=== PATIENT | male | born 1950 | race African-American/Black ===

== ENCOUNTER 2019-12-19 11:38 | Outpatient (CLI) | payer OTHER, SELFPAY ==
--- NOTE | ~2019-12-19 | CT_ITS ---
EXAMINATION: CT chest wo con EXAM DATE: 12/19/2019 12:15 INDICATION: History of non-small cell lung cancer right lower lobe status post SBRT. TECHNIQUE: Spiral CT of the chest without contrast. Axial, coronal and sagittal images were reviewe d. Coronal maximum intensity pixel images of chest reviewed. The dose-length product (DLP) for this examination was 214.44 mGy-cm. The exposure was tailored according to patient size (auto mA exposur e control), and iterative reconstruction (ASIR) was used as additional dose reduction technique. Comp arison is made to prior examination from 10/27/2018. FINDINGS: Again there is right infrahilar airspace disease, with a cut off posterior segmental bronc hus from soft tissue density, and spiculated opacity radiating out from this. Difficult to measure th is given its shape, but previously measured approximately 1.2 cm for the major nodular component with out linear radiating opacities. It appears unchanged in size, shape, appearance today, probably scarr ing of cancer following radiation treatment. There is mild emphysema. There is a left subclavian arterial shunt, proximal portion appears collapse d, distal portion is normal in caliber extending down the left anterolateral aspect of the thorax. T here are no pleural or pericardial effusions. Tracheobronchial tree is patent. There is no medias tinal, hilar or axillary lymphadenopathy. There is no pneumothorax. Heart normal in size. There is mild coronary arterial calcification, arterial sclerosis. Upper abdomen is unremarkable. Chron ic L1 burst fracture unchanged. There are no osteoblastic or osteolytic lesions identified. IMPRESSION: 1. Stable right lower lobe spiculation, radiating opacities. 2. Mild emphysema. Reviewed, dictated and finalized at location B.
== END 2019-12-19 11:39 | disposition home or self-care (01) ==
LOC: ANHIMG 11:42
PROVIDERS: PCP Family Medicine
DX: C34.31 Malignant neoplasm of lower lobe, right bronchus or lung (principal); J43.9 Emphysema, unspecified
CPT/HCPCS: 71250

== ENCOUNTER 2020-07-16 13:20 | Outpatient (CLI) | payer OTHER, SELFPAY ==
--- NOTE | ~2020-07-16 | CT_ITS ---
EXAMINATION: CT diagnostic chest wo con DATE: 07/16/2020 14:15 INDICATION: Non small cell lung ca; non metastatic. Right lung cancer. TECHNIQUE: Computed tomography (CT) of the chest was performed without intravenous contrast. Addition al 3D reconstructions utilizing coronal maximum intensity projection (MIP) were performed. Automated exposure control and iterative reconstruction technique were employed. The dose-length product was 17 8.08 mGy-cm. COMPARISON: 12/19/2019 and PET/CT dated 12/21/2018 FINDINGS: Unchanged curved linear bands of atelectasis/scarring with associated volume loss and architectural d istortion in the right lower lobe. The thin nature of the bands which is best appreciated on the sagi ttal images appears unchanged. No new pulmonary nodules, pneumonia, pulmonary edema or other pulmonar y infiltrates. No pleural effusion or pneumothorax. Heart size is normal. Atherosclerotic coronary ar shikha calcific a cyst. No pericardial effusion. Thoracic aorta is normal in caliber. No pathologically enlarged thoracic lymphadenopathy. Left axillary femoral bypass graft. The proximal portion is again noted to appear collapsed. Chronic L1 burst fracture. Chronic mild T8 compression fracture. IMPRESSION: 1. Unchanged bands of atelectasis/scarring in the right lower lobe consistent with treated lung cance r. No evident metastatic disease. Reviewed, dictated and finalized at location B. ING DEPARTMENT END FINDER IMPRESSION: 1. Unchanged bands of atelectasis/scarring in the right lower lobe consistent w ith treated lung cancer. No evident metastatic disease.
== END 2020-07-16 13:21 | disposition home or self-care (01) ==
PROVIDERS: PCP Family Medicine; Visit Provider Radiology Radiation Oncology
DX: C34.31 Malignant neoplasm of lower lobe, right bronchus or lung (principal); S22.061A Stable burst fracture of T7-T8 vertebra, initial encounter for closed fracture
CPT/HCPCS: 71250

== ENCOUNTER 2021-03-15 12:54 | Outpatient (CLI) | payer OTHER, SELFPAY ==
--- NOTE | ~2021-03-15 | CT_ITS ---
EXAMINATION: CT diagnostic chest wo con EXAM DATE: 03/15/2021 13:20 INDICATION: Right-sided lung cancer. TECHNIQUE: Spiral CT of the chest without contrast. Axial, coronal and sagittal images of the chest were reviewed. Coronal maximum intensity pixel images of chest reviewed. The dose-length product ( DLP) for this examination was 234.97 mGy-cm. The exposure was tailored according to patient size (au to mA exposure control), and iterative reconstruction (ASIR) was used as additional dose reduction te chnique. Comparison is made to prior examination from 07/16/2020. FINDINGS: Again there is linear opacity extending from the right infrahilar region to the pleura con sistent with treated lung cancer, scarring unchanged. There are no pleural or pericardial effusions. Again there is some debris in the trachea. There is no mediastinal, hilar or axillary lymphadenop athy. There is no pneumothorax. Heart normal in size. There is mild coronary arterial calcifica tion, arterial sclerosis. Lobular atrophic left kidney. There are old right rib fractures. There ar e no osteoblastic or osteolytic lesions identified. Chronic burst fracture of L1 with severe loss of this height centrally and about 6 mm retropulsion is unchanged. IMPRESSION: Stable exam. Reviewed, dictated and finalized at location B. IMPRESSION: Stable exam.
== END 2021-03-15 12:55 | disposition home or self-care (01) ==
PROVIDERS: PCP Family Medicine; Visit Provider Radiology Radiation Oncology
DX: C34.31 Malignant neoplasm of lower lobe, right bronchus or lung (principal)
CPT/HCPCS: 71250

== ENCOUNTER 2021-10-17 10:27 | Outpatient (CLI) | payer OTHER, SELFPAY ==
--- NOTE | ~2021-10-17 | CT_ITS ---
EXAMINATION: CT diagnostic chest wo con DATE: 10/17/2021 10:56 INDICATION: Non-small cell lung cancer TECHNIQUE: Computed tomography (CT) of the chest was performed without intravenous contrast. The dose -length product (DLP) was 277.98 mGy-cm. Automated exposure control and iterative reconstruction tech fishfishmeque were employed. COMPARISON: 03/15/2021 FINDINGS: Respiratory motion slightly limits the examination. There is a stable, chronic area of scar ring in the right lower lobe, consistent with treated lung cancer. No new suspicious findings are radha dent. There is no pleural effusion or pneumothorax. No pathologically enlarged thoracic lymph nodes a re identified. The heart size is normal. Calcified coronary artery atherosclerosis is noted. There is a chronic burst fracture of L1. Again noted is a left axillary femoral bypass graft which appears to be collapsed in its proximal portion. Cysts of the right kidney measure up to 5.5 cm. A large volume of colonic stool is present. A subtle area of sclerosis has developed in the posterior right 10th ri b adjacent to the lower lobe opacities. IMPRESSION: 1. Stable scarring and atelectasis of the right lower lobe, consistent with treated malignancy. 2. Subtle area of sclerosis in the posterior right 10th rib adjacent to the treated malignancy, possi richard due to radiation change. Attention on follow-up examinations is recommended. Reviewed, dictated and finalized at location F. IMPRESSION: 1. Stable scarring and atelectasis of the right lower lobe, consistent with benson ated malignancy. 2. Subtle area of sclerosis in the posterior right 10th rib adjacent to the benson ated malignancy, possibly due to radiation change. Attention on follow-up exami nations is recommended.
== END 2021-10-17 10:28 | disposition home or self-care (01) ==
PROVIDERS: PCP Family Medicine; Visit Provider Radiology Radiation Oncology
DX: C34.31 Malignant neoplasm of lower lobe, right bronchus or lung (principal)
CPT/HCPCS: 71250

== ENCOUNTER 2022-04-30 09:11 | Outpatient (CLI) | payer OTHER, SELFPAY ==
--- NOTE | ~2022-04-30 | CT_ITS ---
EXAMINATION:CT diagnostic chest wo con DATE: 04/30/2022 09:38 INDICATION: Malignant neoplasm of lower lobe, right bronchus or lung. TECHNIQUE: Computed tomography (CT) of the chest was performed without intravenous contrast. Automate d exposure control and iterative reconstruction technique were employed. The dose-length product (DLP ) was 215.53 mGy-cm. COMPARISON: Chest CT 10/17/2021 FINDINGS: There is mild emphysema. There is mild atelectasis bilaterally. There is mucous in right ma instem bronchus. In the right lower lobe, there are airspace opacities with volume loss measuring 5.2 x 2.3 cm that previously measured 4.1 x 2.1 cm. No pleural effusion. The heart size is normal. No pe ricardial effusion. There are coronary artery calcifications. There is moderate atrophy of left kidne y. There is a chronic burst fracture of L1. There is mild chronic height loss of multiple vertebral b odies. IMPRESSION: 1. Worsened airspace opacities in right lung lower lobe, likely treatment changes. 2. Mild emphysema. Reviewed, dictated and finalized at location A. ER SETTER ELECTRON BEAM MACHINE IMPRESSION: 1. Worsened airspace opacities in right lung lower lobe, likely treatment stephenson es. 2. Mild emphysema.
== END 2022-04-30 09:12 | disposition home or self-care (01) ==
PROVIDERS: PCP Family Medicine; Visit Provider Radiology Radiation Oncology
DX: C34.31 Malignant neoplasm of lower lobe, right bronchus or lung (principal); J43.9 Emphysema, unspecified
CPT/HCPCS: 71250

== ENCOUNTER 2022-05-31 11:08 | Observation (INO) | payer OTHER, SELFPAY ==
[2022-05-31] VITALS (25 sets, daily range): BP systolic 100–175; BP diastolic 67–112; PULSE 65–90; RESP 12–26; TEMP 36.5–37; O2SAT 98–100; BMI 18.8; BMI 20.5
--- NOTE | ~2022-05-31 | MR_ITS ---
EXAMINATION: MR brain/brain stem wo/w con DATE: 06/01/2022 11:12 INDICATION: Left arm weakness. TECHNIQUE: Magnetic resonance imaging (MRI) of the brain and brainstem was performed without and with 12 mL MultiHance intravenous contrast. COMPARISON: Head CT 05/31/2022 FINDINGS: There are old infarcts involving the right frontal and parietal lobes, left frontal, pariet al, and occipital lobes, left insula, and left basal ganglia. There is no intracranial hemorrhage, ac niyah infarction, or abnormal intracranial mass lesion. There is ex vacuo dilatation of left lateral ve ntricle. There are likely changes of right ocular lens replacement surgery. There is a trace right ma stoid effusion. IMPRESSION: 1. Multiple old infarcts in the brain. Reviewed, dictated and finalized at location A. ESSOR OF PSYCHIATRY
--- NOTE | ~2022-05-31 | CT_ITS ---
EXAMINATION: CTA brain carotid DATE: 05/31/2022 16:06 INDICATION: CVA TECHNIQUE: Computed tomographic angiography (CTA) of the head was performed without andwith 100 mL Om nipaque-350 intravenous contrast. CTA of the neck was performed with intravenous contrast. Automated exposure control and iterative reconstruction technique were employed. The dose-length product was 11 45.49 mGy-cm. Maximum intensity projection and volume rendered 3D-reconstructions were created by the technologist on a separate workstation. COMPARISON: CT brain 05/31/2022 and 09/18/2018. FINDINGS: CT BRAIN: No acute large vessel infarct, intracranial hemorrhage, mass, or hydrocephalus. CTA HEAD: Bilateral petrous and cavernous carotid occlusions. Flow is preserved to the anterior circulation via small, patent bilateral posterior communicating arteries. No aneurysm, high flow vascular malformati on, nidus or extravasation. Old infarction involving the right frontal and parietal lobes and the lef t frontal parietal and occipital lobes and the posterior limb of the left internal capsule. CTA NECK: Aortic arch and proximal great vessels: Calcified and noncalcified plaque in aortic arch and proximal great vessels. Right common carotid, carotid bifurcation, and internal carotid artery: Occlusion of the right finance accounting internship al carotid artery at the bifurcation.There is 100% stenosis of the proximal right internal carotid ar shikha relative to normal distal artery lumen diameter (NASCET criteria). Left common carotid, carotid bifurcation, and internal carotid artery: Occlusion of the left internal carotid artery at the bifurcation.There is 100% stenosis of the proximal left internal carotid arter y relative to normal distal artery lumen diameter (NASCET criteria). Vertebral arteries: Occlusion versus near occlusion at the origin of the right vertebral artery. Extr bettie diminished flow in the mid and distal vertebral artery, possibly from retrograde flow. Dominant left vertebral artery. Other findings: Right lens replacement. Degenerative change in the cervical spine. IMPRESSION: 1. 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 Flow maintained via small but patent posterior communicating arteries. 2. Occlusion/near occlusion of the right vertebral artery with severely diminished and possibly retro grade flow in the diminutive distal right vertebral artery. 3.Old infarction involving the right frontal and parietal lobes and the left frontal parietal and occ ipital lobes and the posterior limb of the left internal capsule, without definite evidence of infarc t progression. Reviewed, dictated and finalized at location K. ET CLERK IMPRESSION: 1. Bilateral internal carotid artery occlusions from the bifurcations to the le ivory of the cavernous carotids. Flow maintained via small but patent posterior c ommunicating arteries. 2. Occlusion/near occlusion of the right vertebral artery with severely diminis hed and possibly retrograde flow in the diminutive distal right vertebral arter y. 3.Old infarction involving the right frontal and parietal lobes and the left fr ontal parietal and occipital lobes and the posterior limb of the left internal capsule, without definite evidence of infarct progression.
--- NOTE | ~2022-05-31 | XR_ITS ---
EXAMINATION: XR chest 1V portable DATE: 05/31/2022 12:27 INDICATION: Weakness TECHNIQUE: frontal view of the chest was obtained. COMPARISON: Chest CT dated 04/30/2022 FINDINGS: Likely stable appearance, for differences in technique in a linear band of discoid atelectasis/scarri ng extending to a somewhat comma shaped region of consolidation in the right lower lobe. Additional u nchanged linear band of discoid atelectasis/scarring extending across the left lower lung zone. No ot her airspace opacities, pulmonary edema, pleural effusion or pneumothorax. The cardiomediastinal silh ouette is normal. IMPRESSION: 1. Relatively stable appearance accounting for differences in technique in airspace opacities in the right lower lung zone likely related to atelectasis/scarring and posttreatment changes of a reported prior non-small cell lung cancer. No other acute cardiopulmonary disease. Reviewed, dictated and finalized at location A. D SOLUTIONS ARCHITECT IMPRESSION: 1. Relatively stable appearance accounting for differences in technique in airs pace opacities in the right lower lung zone likely related to atelectasis/scarr ing and posttreatment changes of a reported prior non-small cell lung cancer. N o other acute cardiopulmonary disease.
--- NOTE | ~2022-05-31 | CT_ITS ---
EXAMINATION: CT brain wo con DATE: 05/31/2022 13:10 INDICATION: Left-sided hemiparesis TECHNIQUE: Computed tomography (CT) of the head was performed without intravenous contrast. Sagittal and coronal reconstructions were performed. The mA was adjusted according to patient size. Iterative reconstruction technique was employed. The dose-length product was 681.00 mGy-cm. COMPARISON: head CT dated 09/18/18 FINDINGS: Again seen are multiple regions of encephalomalacia consistent with chronic infarcts in the right fro ntal and parietal lobes and the left frontal, parietal and occipital lobes which appear unchanged. Al so unchanged is a small old lacunar infarct at the posterior limb of the left internal capsule. No ac niyah intracranial hemorrhage, acute infarction or abnormal extra axial fluid collection. Stable appear ance of ex vacuo dilation of the left lateral ventricle. No mass/mass effect. Changes of right intrao cular lens replacement. The orbits, paranasal sinuses and mastoid air cells are normal. IMPRESSION: 1. Stable appearance of old infarcts in the right frontal and parietal lobes, left frontal, parietal and occipital lobes and posterior limb of the left internal capsule. No acute cranial process. Reviewed, dictated and finalized at location A. HELPER IMPRESSION: 1. Stable appearance of old infarcts in the right frontal and parietal lobes, l eft frontal, parietal and occipital lobes and posterior limb of the left ad operations intern al capsule. No acute cranial process.
--- NOTE | ~2022-05-31 | MR_ITS ---
EXAMINATION: MR cervical spine wo/w con DATE: 06/02/2022 12:51 INDICATION: Left upper extremity weakness. TECHNIQUE: Magnetic resonance imaging (MRI) of the cervical spine was performed without intravenous c ontrast. COMPARISON: CTA neck 05/31/2022 FINDINGS: Motion artifact is noted. There is 2 mm retrolisthesis of C3 on C4 and C4 on C5. Vertebral body heights are normal. There is moderately decreased disc height at C2-C3, severely decreased disc height at C3-C4 and C4-C5, and moderately decreased disc height at C5-C6 and C6-C7. The signal intens ity of the spinal cord is not well evaluated due to motion artifact. The following disc levels are sp ecifically discussed: C2-C3: There is a central protrusion. There is severe bilateral uncovertebral joint osteoarthritis. T here is moderate bilateral facet joint osteoarthritis. There is mild bilateral neural foraminal steno sis. There is mild central canal stenosis. C3-C4: The disc is bulging. There is severe bilateral uncovertebral joint osteoarthritis. There is mi ld bilateral facet joint osteoarthritis. There is moderate bilateral neural foraminal stenosis. There is mild central canal stenosis. C4-C5: The disc is bulging. There is severe bilateral uncovertebral joint osteoarthritis. There is se marcial bilateral facet joint osteoarthritis. There is moderate bilateral neural foraminal stenosis. The re is mild central canal stenosis. C5-C6: The disc is bulging. There is severe bilateral uncovertebral joint osteoarthritis. There is mo derate bilateral facet joint osteoarthritis. There is moderate bilateral neural foraminal stenosis. T here is mild central canal stenosis. C6-C7: The disc is bulging. There is mild bilateral uncovertebral joint osteoarthritis. There is mode rate bilateral facet joint osteoarthritis. There is mild bilateral neural foraminal stenosis. There i s mild central canal stenosis. C7-T1: The disc does not extend beyond the endplate margin. There is no uncovertebral joint osteoarth ritis. There is mild right and moderate left facet joint osteoarthritis. There is no neural foraminal stenosis. There is no central canal stenosis. IMPRESSION: 1. Severe cervical spondylosis. 2. Motion artifact precludes evaluation of the spinal cord signal intensity. Reviewed, dictated and finalized at location [facility]. [employer]
--- NOTE | 2022-05-31 12:13 | ECG_ITS ---
Measurements Intervals Wilson Rate: 73 P: 72 OR: 134 QRS: 47 QRSD: 87 T: 78 QT: 398 QTc: 439 Interpretive Statements SINUS RHYTHM POSSIBLE LEFT ATRIAL ENLARGEMENT [-0.1mV P WAVE IN V1/V2] EARLY REPOLARIZATION NONSPECIFIC ST & T-WAVE ABNORMALITY COMPARED TO ECG 09/18/2018 08:49:46 NO SIGNIFICANT CHANGE Electronically Signed On 06-01-2022 8:21:47 DISTRIBUTION TRANSFORMER ASSEMBLER by Jefry Alcantara M.D.
[2022-05-31 12:42] LABS: Basophils Absolute Auto 0.1 K/mm3 (0.0-0.1); Basophils Percent Auto 0.6 % (0.2-1.2); Eosinophils Absolute Auto 0.5 K/mm3 (0-0.3); Eosinophils Percent Auto 4.6 % (0-4.4); Hemoglobin 14.7 g/dL (14.0-18.0); Immature Granulocyte Absolute 0.04 K/mm3 (0.00-0.031); Immature Granulocyte Percent A 0.4 % (0-0.5); Lymphocytes Absolute Auto 2.25 K/mm3 (0.9-3.2); Lymphocytes Percent Auto 21.8 % (18.3-44.2); Mean Corpuscular Hemoglobin 29.8 pg (26-34); Mean Corpuscular Volume 93.3 fl (80-100); Mean Platelet Volume 9.2 fl (7.4-10.4); Monocytes Absolute Auto 0.9 K/mm3 (0.1-0.6); Monocytes Percent Auto 8.5 % (2.6-8.5); Neutrophils Absolute Auto 6.6 K/mm3 (1.3-6.7); Neutrophils Percent Auto 64.1 % (45.5-73.1); Platelet Count Result 392 k/mm3 (150-375); Red Blood Count 4.93 M/mm3 (4.6-6.20); Red Cell Distribution Width 14.4 % (11.5-14.5); White Blood Count 10.3 K/mm3 (4.5-10.0)
[2022-05-31 12:52] LABS: Prothrombin Time 12.9 Seconds (11.1-14.7)
[2022-05-31 12:53] LABS: Partial Thromboplastin Time 29.3 SECONDS (22.3-36.8)
[2022-05-31 12:58] LABS: Alanine Aminotransferase 42 U/L (6-50); Albumin Level 4.4 g/dL (3.5-5.1); Alkaline Phosphatase 82 U/L (38-126); Anion Gap 8 mmol/L (8-16); Aspartate Amino Transferase 73 U/L (17-59); Bilirubin,Total 0.7 mg/dL (0.2-1.3); Blood Urea Nitrogen 23 mg/dL (9-20); Calcium 9.1 mg/dL (8.4-10.2); Carbon Dioxide 25 mmol/L (22-30); Chloride 103 mmol/L (98-107); Estimated CRCL calculation 37 ml/min; Estimated Glomerular Filt Rate 56; Glucose 138 mg/dL (65-110); Potassium 4.6 mmol/L (3.4-5.0); Sodium 136 mmol/L (137-145)
--- NOTE | 2022-05-31 13:01 | ED.GENADULT ---
HPI - General Adult General Chief complaint: Unspecified Stated complaint: neuro symptoms started 05/29 Time Seen by Provider: 05/31/22 11:23 Source: other (caregiver) Mode of arrival: wheelchair Limitations: dementia History of Present Illness HPI narrative: This is a 71 year old male with history of dementia, CVA with right side deficits, PAD who presents with caregiver for evaluation of left hand contracture. She states she has noticed this that patient has been hold his left hand straight. She states he is unable to hot frame tender things now. She thought he had a cramp but it has not improved. She reports that he is at his baseline mentation and he is not more confused than normal. She denies recent falls, nausea, vomiting, fever, chills chest pain. Patient is mostly wheelchair bound and is able to stand to transfer. Related Data Home Medications Medication Instructions Recorded Confirmed amlodipine 5 mg tablet 5 mg PO BID 12/15/19 atorvastatin 40 mg tablet 40 mg PO DAILY 12/15/19 cephalexin 500 mg capsule 500 mg PO Q12H 12/15/19 cetirizine 10 mg capsule PO 12/15/19 chlorthalidone 25 mg tablet 25 mg PO DAILY 12/15/19 clopidogrel 75 mg tablet 75 mg PO DAILY 12/15/19 flunisolide 80 mcg/actuation HFA mcg inhalation 12/15/19 aerosol inhaler gabapentin 300 mg capsule 300 mg PO DAILY 12/15/19 ipratropium 20 mcg-albuterol 100 1 puff inhalation QID 12/15/19 mcg/actuation mist for inhalation losartan 100 mg tablet 100 mg PO DAILY 12/15/19 montelukast 10 mg tablet 10 mg PO DAILY 12/15/19 tamsulosin 0.4 mg capsule 0.4 mg PO DAILY 12/15/19 triamcinolone acetonide 0.1 % 1 applic topical BID 12/15/19 topical cream umeclidinium 62.5 mcg/actuation 1 inhalation inhalation DAILY 12/15/19 blister powder for inhalation (Incruse Ellipta) flunisolide 80 mcg/actuation HFA mcg inhalation 08/27/20 aerosol inhaler Allergies Allergy/AdvReac Type Severity Reaction Status Date / Time No Known Allergies Allergy Verified 05/31/22 11:32 Review of Systems Review of Systems: ROS unobtainable: Yes unobtainable due to medical condition PMFSH Past Medical History Medical History (Updated 05/31/22 @ 19:08 by Sruthi Quarles MD) CVA (cerebral vascular accident) Hyperlipidemia Hypertension Non-small cell cancer of right lung Peripheral vascular disease Seizure Social History Social History (Updated 05/31/22 @ 14:40 by Linda Mccain NP) Social History: lives wit poa Smoking status: Never smoker Alcohol intake: never Substance use: never Exam Narrative: GENERAL: well-nourished, and in no acute distress. HEAD: Normocephalic, atraumatic EYES: PERRLA and EOMI, conjunctiva clear without discharge EARS: TM's clear bilaterally without erythema or dullness NOSE: Nares clear, no rhinorrhea or epistaxis THROAT:Mucous membranes moist, Oropharynx normal without erythema, exudate, peritonsillar swelling or fluctuance NECK: Supple, without lymphadenopathy or mass RESPIRATORY: No respiratory distress, Airway patent, Respirations non-labored, Clear to auscultation without rales, rhonchi or wheeze HEART: Regular rate and rhythm. Normal peripheral pulses. ABDOMEN: Soft, nontender, nondistended, normal active bowel sounds. No masses. No rebound or guarding, No organomegaly. EXTREMITIES: No edema, normal strength with full range of motion. SKIN: Warm, dry, normal color without rash NEURO: Alert and oriented to person PSYCH: Normal mood and affect. Neuro: General: oriented to person Cranial nerves: Yes Equal, round and reactive pupils present, Yes Bilaterally intact EOM present and Yes Midline tongue present Speech: No Abnormal speech present and No dysarthria Gait exam (Neuro): Unable to assess gait Motor exam (neuro): Abnormal motor strength present (right arm contract but has proximal movement. bilateral leg weakness) and Pronator motor function present pronator drift of left upper extremity S
[2022-05-31 13:09] LABS: Troponin I 0.018 ng/mL (0.000-0.034)
[2022-05-31 13:19] LABS: Influenza A QL RT-PCR Negative (Negative); Influenza B QL RT-PCR Negative (Negative); SARS-CoV-2 RNA PCR Negative
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
[2022-05-31 16:13] LABS: Glucose Point of Care 92 mg/dl (65-105)
[2022-05-31 18:55] LABS: Appearance Urine Clear (Clear); Bilirubin Urine Negative (Negative); Blood Urine Trace-intact (Negative); Color Urine Yellow (Yellow); Glucose Urine UA Negative (Negative); Ketones Urine Negative (Negative); Leukocyte Esterase Ur Negative LEU/UL (Negative); Nitrate Urine Negative (Negative); Protein Urine Negative (Negative); pH Urine 6.5 (5.0-9.0)
[2022-05-31 18:58] LABS: Bacteria Urine Trace /hpf; RBC Urine 0-2 /hpf (0-2); WBC Urine 0-3 /hpf
[2022-05-31 19:02] LABS: Add Urine Microscopic? YES
--- NOTE | 2022-05-31 21:45 | ADMGEN ---
This patient, Connie Molina, was admitted to Medical Room 248-. Patient/family oriented to hospital policies and general routines including ID bracelet, bed and alarms, visiting hours, pain management, procedures, bathroom and other care routines, personal items, smoking policy, room service/diet, and visiting hours. Information on how to activate the Rapid Response Team has been discussed. Patient/Family are encouraged to report perceived risks to care and to ask questions if they do not understand what they are told or what they should do.
[2022-06-01] VITALS (15 sets, daily range): BP systolic 104–159; BP diastolic 52–69; PULSE 73–102; RESP 16–21; TEMP 36.3–36.9; O2SAT 94–100
[2022-06-01] MEDS: ALBUTEROL SULFATE (*SP) AEROSOL 1 PUFF 2 PUFF INHALATION ×6 (04:34→23:36)
[2022-06-01 06:16] LABS: Basophils Absolute Auto 0.1 K/mm3 (0.0-0.1); Basophils Percent Auto 0.6 % (0.2-1.2); Eosinophils Absolute Auto 0.4 K/mm3 (0-0.3); Eosinophils Percent Auto 5.1 % (0-4.4); Hematocrit 41.1 % (42.0-52.0); Hemoglobin 13.4 g/dL (14.0-18.0); Immature Granulocyte Absolute 0.02 K/mm3 (0.00-0.031); Immature Granulocyte Percent A 0.2 % (0-0.5); Lymphocytes Percent Auto 31.1 % (18.3-44.2); Mean Corpuscular HGB Conc 32.6 g/dl (32-36); Mean Corpuscular Hemoglobin 29.6 pg (26-34); Mean Corpuscular Volume 90.9 fl (80-100); Mean Platelet Volume 9.3 fl (7.4-10.4); Monocytes Absolute Auto 0.7 K/mm3 (0.1-0.6); Monocytes Percent Auto 8.3 % (2.6-8.5); Neutrophils Absolute Auto 4.6 K/mm3 (1.3-6.7); Neutrophils Percent Auto 54.7 % (45.5-73.1); Platelet Count Result 390 k/mm3 (150-375); Red Blood Count 4.52 M/mm3 (4.6-6.20); Red Cell Distribution Width 14.1 % (11.5-14.5); White Blood Count 8.4 K/mm3 (4.5-10.0)
[2022-06-01 06:35] LABS: Alanine Aminotransferase 33 U/L (6-50); Albumin Level 3.7 g/dL (3.5-5.1); Alkaline Phosphatase 70 U/L (38-126); Anion Gap 7 mmol/L (8-16); Aspartate Amino Transferase 49 U/L (17-59); Bilirubin,Total 0.4 mg/dL (0.2-1.3); Blood Urea Nitrogen 22 mg/dL (9-20); Calcium 8.5 mg/dL (8.4-10.2); Carbon Dioxide 27 mmol/L (22-30); Chloride 102 mmol/L (98-107); Estimated CRCL calculation 36 ml/min; Estimated Glomerular Filt Rate 56; Glucose 92 mg/dL (65-110); Magnesium 2.3 mg/dL (1.6-2.3); Potassium 4.3 mmol/L (3.4-5.0); Sodium 136 mmol/L (137-145)
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
[2022-06-01] MEDS: METOPROLOL SUCCINATE EXT REL 25 MG TABCR PO (10:14)
[2022-06-01] MEDS: LOSARTAN POTASSIUM 100 MG TABLET PO (10:15)
[2022-06-01] MEDS: FAMOTIDINE 20 MG TABLET PO ×2 (10:15→17:14)
[2022-06-01] MEDS: ASPIRIN 81 MG ENTERIC TABLET PO (10:16)
[2022-06-01] MEDS: LORATADINE 10 MG TABLET PO (10:16)
[2022-06-01] MEDS: DOCUSATE SODIUM LIQ 100 MG/10 ML UDC 50 MG PO ×2 (10:17→17:13)
[2022-06-01] MEDS: ATORVASTATIN 40 MG TABLET PO (10:17)
[2022-06-01] MEDS: CLOPIDOGREL BISULFATE 75 MG TABLET PO (10:17)
--- NOTE | 2022-06-01 10:58 | PCPTNOTE ---
Patient out of room at 1036 for a test will check on patient tomorrow.
--- NOTE | 2022-06-01 11:25 | PM.IMPN ---
Progress Note: A&P Assessment and Plan (1) AMS (altered mental status): Code(s): R41.82 - Altered mental status, unspecified Status: Acute Assessment and Plan: -patient's chest x-ray is negative for any infectious process. -urinalysis was clear without any signs and symptoms of infection. -no skin issues are noted to show any infectious process. -the patient does have dementia and has had multiple CVAs in the past. 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 (2) BPH (benign prostatic hyperplasia): Code(s): N40.0 - Benign prostatic hyperplasia without lower urinary tract symptoms Status: Acute Assessment and Plan: -continue with tamsulosin (3) COPD (chronic obstructive pulmonary disease): Code(s): J44.9 - Chronic obstructive pulmonary disease, unspecified Status: Acute Assessment and Plan: -continue with Incruse Ellipta -continue with Singulair -continue with inhalers from home (4) CVA (cerebrovascular accident): Code(s): I63.9 - Cerebral infarction, unspecified Status: Acute Assessment and Plan: -continue with Plavix -neurology has been consulted. -. Bilateral internal carotid artery occlusions from the bifurcations to the level of the cavernous carotids. Flow maintained via small but patent posterior communicating arteries. 2. Occlusion/near occlusion of the right vertebral artery with severely diminished and possibly retrograde flow in the diminutive distal right vertebral artery. 3.Old infarction involving the right frontal and parietal lobes and the left frontal parietal and occipital lobes and the posterior limb of the left internal capsule, without definite evidence of infarct progression. Both the right internal carotid at the bifurcation is 100% stenosis of the proximal right internal carotid as well as 100% stenosis of proximal left internal carotid artery relative to normal distal artery lumen The [id number] was stating that the patient was holding his hand open and would not close it 1 day. However he is able to open and close both hands at this time. PT OT evaluation. Echo has been ordered. MRI of the brain (5) Dementia: Code(s): F03.90 - Unspecified dementia, unspecified severity, without behavioral disturbance, psychotic disturbance, mood disturbance, and anxiety Status: Acute Assessment and Plan: -the patient gets agitated at times. -p.r.n. Ativan (6) Depression: Code(s): F32.A - Depression, unspecified Status: Acute Assessment and Plan: -the patient does not appear to be on any medication at this time. (7) Hyperlipidemia: Code(s): E78.5 - Hyperlipidemia, unspecified Status: Acute Assessment and Plan: -continue with atorvastatin. (8) Hypertension: Code(s): I10 - Essential (primary) hypertension Status: Acute Assessment and Plan: -continue with Norvasc -continue with chlorthalidone Continue with losartan (9) Non-small cell cancer of right lung: Code(s): C34.91 - Malignant neoplasm of unspecified part of right bronchus or lung Status: Acute Assessment and Plan: The patient has had radiation treatment in the past. Accor
[2022-06-01] MEDS: hydrALAZINE HCL 50 MG TABLET PO (17:14)
[2022-06-01] MEDS: DOXAZOSIN MESYLATE 2 MG TABLET PO (20:27)
[2022-06-02] VITALS (11 sets, daily range): BP systolic 101–138; BP diastolic 67–85; PULSE 78–101; RESP 14–21; TEMP 36.1–36.3; O2SAT 98–100
--- NOTE | 2022-06-02 | ECHO_ITS ---
Patient Info Name: Connie Molina Age: 71 years : 1950 Gender: Male Ht: 68 in Wt: 134 lbs BSA: 1.70 m2 HR: 78 bpm BP: 159 / 56 mmHg Technical Quality: Fair Exam Date: 06/02/2022 11:01 AM Exam Location: [facility] Pulmonary Exam Room: 248 Patient Status: Inpatient Admit Date: 05/31/2022 Staff Ordering Physician: Linda Mccain NP Barrel Handler: Margareth Vuong RCS Attending Provider: Zackery Guadalupe MD Referring Physician: Adán MARMOLEJO; Exam Type: CA echo doppler w bubble study Study Info Indications - cva hx Complete two-dimensional, color flow and Doppler transthoracic echocardiogram is performed with agitated saline. Contrast/Agitated Saline Contrast/Ag. Saline: Agitated Saline Amount: 20.00 ml Administered By: Margareth Vuong Existing IV Access: Yes IV Access Condition: patent with no signs of infiltration Summary 1. Left ventricular chamber dimension is normal. 2. Left ventricular systolic function is hyperdynamic, estimated at >70%. 3. There is mildly increased left ventricular wall thickness. 4. The left ventricular diastolic function is grade I diastolic dysfunction. 5. E/e' 9 is minimally elevated. 6. The mitral valve has mildly calcified annulus. 7. No pulmonary hypertension, estimated pulmonary arterial systolic pressure is 23 mmHg. Left Ventricle E/e' 9 is minimally elevated. Left ventricular chamber dimension is normal. Left ventricular systolic function is hyperdynamic, estimated at >70%. There is mildly increased left ventricular wall thickness. The left ventricular diastolic function is grade I diastolic dysfunction. Right Ventricle Right ventricular chamber dimension is normal. Right ventricular systolic function is normal. Left Atria Left atrial chamber dimension is normal. Right Atria Right atrial chamber dimension is normal. Atrial Septum Agitated saline injection opacified right side cardiac chambers without obvious shunt to left side cardiac chambers. Intact interatrial septum visualized by 2D and agitated saline imaging. Aortic Valve The aortic valve is trileaflet. There is no aortic valve stenosis. There is no aortic valve regurgitation. Pulmonic Valve There is no pulmonic regurgitation. Mitral Valve The mitral valve has mildly calcified annulus. There is no mitral valve stenosis. There is trace mitral valve regurgitation. Tricuspid Valve There is no tricuspid valve regurgitation. No pulmonary hypertension, estimated pulmonary arterial systolic pressure is 23 mmHg. Pericardium/Pleural There is no pericardial effusion. Inferior Vena Cava Normal inferior vena cava with >50% collapse upon inspiration consistent with normal right atrial pressure, 5 mmHg. Aorta The aortic root size at the sinus of Valsalva is normal. Left Ventricular Outflow Tract Name Value Normal LVOT 2D LVOT Diameter 2.0 cm LVOT Doppler LVOT Peak Gradient 7 mmHg LVOT Mean Gradient 3 mmHg LVOT VTI 24 cm
[2022-06-02] MEDS: LOSARTAN POTASSIUM 100 MG TABLET PO (09:28)
[2022-06-02] MEDS: FAMOTIDINE 20 MG TABLET PO ×2 (09:28→17:23)
[2022-06-02] MEDS: DOCUSATE SODIUM LIQ 100 MG/10 ML UDC 50 MG PO ×2 (09:28→17:23)
[2022-06-02] MEDS: CLOPIDOGREL BISULFATE 75 MG TABLET PO (09:28)
[2022-06-02] MEDS: amLODIPine BESYLATE 5 MG TABLET 10 MG PO (09:28)
[2022-06-02] MEDS: LORATADINE 10 MG TABLET PO (09:28)
[2022-06-02] MEDS: hydrALAZINE HCL 50 MG TABLET PO ×2 (09:28→17:23)
[2022-06-02] MEDS: ATORVASTATIN 40 MG TABLET 80 MG PO (09:29)
[2022-06-02] MEDS: METOPROLOL SUCCINATE EXT REL 25 MG TABCR PO (09:29)
[2022-06-02] MEDS: ASPIRIN 81 MG ENTERIC TABLET PO (09:30)
--- NOTE | 2022-06-02 11:13 | PCRCNOTE ---
Window of time for administration has passed. See next scheduled administration.
[2022-06-02] MEDS: ALBUTEROL SULFATE (*SP) AEROSOL 1 PUFF 2 PUFF INHALATION ×3 (13:26→21:27)
--- NOTE | 2022-06-02 14:02 | PM.IMPN ---
Progress Note: A&P Assessment and Plan (1) AMS (altered mental status): Code(s): R41.82 - Altered mental status, unspecified Status: Acute Assessment and Plan: -patient's chest x-ray is negative for any infectious process. -urinalysis was clear without any signs and symptoms of infection. -no skin issues are noted to show any infectious process. -the patient does have dementia and has had multiple CVAs in the past. 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 patient caregiver he doing better and now he is baseline, (2) BPH (benign prostatic hyperplasia): Code(s): N40.0 - Benign prostatic hyperplasia without lower urinary tract symptoms Status: Acute Assessment and Plan: -continue with tamsulosin (3) COPD (chronic obstructive pulmonary disease): Code(s): J44.9 - Chronic obstructive pulmonary disease, unspecified Status: Acute Assessment and Plan: -continue with Incruse Ellipta -continue with Singulair -continue with inhalers from home (4) CVA (cerebrovascular accident): Code(s): I63.9 - Cerebral infarction, unspecified Status: Acute Assessment and Plan: -continue with Plavix -neurology has been consulted. -. Bilateral internal carotid artery occlusions from the bifurcations to the level of the cavernous carotids. Flow maintained via small but patent posterior communicating arteries. 2. Occlusion/near occlusion of the right vertebral artery with severely diminished and possibly retrograde flow in the diminutive distal right vertebral artery. 3.Old infarction involving the right frontal and parietal lobes and the left frontal parietal and occipital lobes and the posterior limb of the left internal capsule, without definite evidence of infarct progression. Both the right internal carotid at the bifurcation is 100% stenosis of the proximal right internal carotid as well as 100% stenosis of proximal left internal carotid artery relative to normal distal artery lumen The [id number] was stating that the patient was holding his hand open and would not close it 1 day. However he is able to open and close both hands at this time. PT OT evaluation. Echo has been ordered. MRI of the brain (5) Dementia: Code(s): F03.90 - Unspecified dementia, unspecified severity, without behavioral disturbance, psychotic disturbance, mood disturbance, and anxiety Status: Acute Assessment and Plan: -the patient gets agitated at times. -p.r.n. Ativan (6) Depression: Code(s): F32.A - Depression, unspecified Status: Acute Assessment and Plan: -the patient does not appear to be on any medication at this time. (7) Hyperlipidemia: Code(s): E78.5 - Hyperlipidemia, unspecified Status: Acute Assessment and Plan: -continue with atorvastatin. (8) Hypertension: Code(s): I10 - Essential (primary) hypertension Status: Acute Assessment and Plan: -continue with Norvasc -continue with chlorthalidone Continue with losartan (9) Non-small cell cancer of right lung: Code(s): C34.91 - Malignant neoplasm of unspecified part of right bronchus or lung Status
[2022-06-02] MEDS: ACETAMINOPHEN 325 MG TABLET 650 MG PO (17:30)
[2022-06-02] MEDS: DOXAZOSIN MESYLATE 2 MG TABLET PO (20:43)
[2022-06-03] VITALS: PULSE 88
[2022-06-03] MEDS: ALBUTEROL SULFATE (*SP) AEROSOL 1 PUFF 2 PUFF INHALATION ×4 (01:38→11:51)
[2022-06-03 04:00] VITALS: PULSE 79
[2022-06-03 06:00] VITALS: BP 137/62; PULSE 81; RESP 21; TEMP 36.3; O2SAT 100
[2022-06-03 08:00] VITALS: PULSE 86
[2022-06-03 08:15] LABS: Basophils Absolute Auto 0.1 K/mm3 (0.0-0.1); Basophils Percent Auto 0.6 % (0.2-1.2); Eosinophils Absolute Auto 0.6 K/mm3 (0-0.3); Hematocrit 41.1 % (42.0-52.0); Hemoglobin 12.9 g/dL (14.0-18.0); Immature Granulocyte Absolute 0.03 K/mm3 (0.00-0.031); Immature Granulocyte Percent A 0.3 % (0-0.5); Lymphocytes Absolute Auto 2.02 K/mm3 (0.9-3.2); Lymphocytes Percent Auto 21.1 % (18.3-44.2); Mean Corpuscular HGB Conc 31.4 g/dl (32-36); Mean Corpuscular Hemoglobin 29.9 pg (26-34); Mean Corpuscular Volume 95.1 fl (80-100); Mean Platelet Volume 9.1 fl (7.4-10.4); Monocytes Absolute Auto 0.8 K/mm3 (0.1-0.6); Monocytes Percent Auto 8.6 % (2.6-8.5); Neutrophils Absolute Auto 6.1 K/mm3 (1.3-6.7); Neutrophils Percent Auto 63.4 % (45.5-73.1); Platelet Count Result 350 k/mm3 (150-375); Red Blood Count 4.32 M/mm3 (4.6-6.20); Red Cell Distribution Width 14.4 % (11.5-14.5); White Blood Count 9.6 K/mm3 (4.5-10.0)
[2022-06-03 08:30] LABS: Magnesium 2.4 mg/dL (1.6-2.3)
[2022-06-03 09:11] VITALS: PULSE 106
[2022-06-03] MEDS: FAMOTIDINE 20 MG TABLET PO (09:11)
[2022-06-03] MEDS: ATORVASTATIN 40 MG TABLET 80 MG PO (09:11)
[2022-06-03] MEDS: METOPROLOL SUCCINATE EXT REL 25 MG TABCR PO (09:11)
[2022-06-03] MEDS: amLODIPine BESYLATE 5 MG TABLET 10 MG PO (09:11)
[2022-06-03] MEDS: ASPIRIN 81 MG ENTERIC TABLET PO (09:12)
[2022-06-03] MEDS: hydrALAZINE HCL 50 MG TABLET PO (09:12)
[2022-06-03] MEDS: CLOPIDOGREL BISULFATE 75 MG TABLET PO (09:12)
[2022-06-03] MEDS: DOCUSATE SODIUM LIQ 100 MG/10 ML UDC 50 MG PO (09:13)
[2022-06-03] MEDS: LORATADINE 10 MG TABLET PO (09:13)
[2022-06-03] MEDS: LOSARTAN POTASSIUM 100 MG TABLET PO (09:13)
--- NOTE | 2022-06-03 11:03 | PM.DS ---
DS: Admitting Diagnosis Discharge Date 06/03/2022 Admitting Diagnosis Neurological symptoms DS: Discharge Diagnosis Discharge Diagnosis (1) AMS (altered mental status): Code(s): R41.82 - Altered mental status, unspecified Status: Acute Assessment and Plan: -patient's chest x-ray is negative for any infectious process. -urinalysis was clear without any signs and symptoms of infection. -no skin issues are noted to show any infectious process. -the patient does have dementia and has had multiple CVAs in the past. 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 patient caregiver he doing better and now he is baseline, (2) BPH (benign prostatic hyperplasia): Code(s): N40.0 - Benign prostatic hyperplasia without lower urinary tract symptoms Status: Acute Assessment and Plan: -continue with tamsulosin (3) COPD (chronic obstructive pulmonary disease): Code(s): J44.9 - Chronic obstructive pulmonary disease, unspecified Status: Acute Assessment and Plan: -continue with Incruse Ellipta -continue with Singulair -continue with inhalers from home (4) CVA (cerebrovascular accident): Code(s): I63.9 - Cerebral infarction, unspecified Status: Acute Assessment and Plan: -continue with Plavix -neurology has been consulted. -. Bilateral internal carotid artery occlusions from the bifurcations to the level of the cavernous carotids. Flow maintained via small but patent posterior communicating arteries. 2. Occlusion/near occlusion of the right vertebral artery with severely diminished and possibly retrograde flow in the diminutive distal right vertebral artery. 3.Old infarction involving the right frontal and parietal lobes and the left frontal parietal and occipital lobes and the posterior limb of the left internal capsule, without definite evidence of infarct progression. Both the right internal carotid at the bifurcation is 100% stenosis of the proximal right internal carotid as well as 100% stenosis of proximal left internal carotid artery relative to normal distal artery lumen The jrxxm-dm-vptdanch was stating that the patient was holding his hand open and would not close it 1 day. However he is able to open and close both hands at this time. PT OT evaluation. Echo has been ordered. MRI of the brain (5) Dementia: Code(s): F03.90 - Unspecified dementia, unspecified severity, without behavioral disturbance, psychotic disturbance, mood disturbance, and anxiety Status: Acute Assessment and Plan: -the patient gets agitated at times. -p.r.n. Ativan (6) Depression: Code(s): F32.A - Depression, unspecified Status: Acute Assessment and Plan: -the patient does not appear to be on any medication at this time. (7) Hyperlipidemia: Code(s): E78.5 - Hyperlipidemia, unspecified Status: Acute Assessment and Plan: -continue with atorvastatin. (8) Hypertension: Code(s): I10 - Essential (primary) hypertension Status: Acute Assessment and Plan: -continue with Norvasc -continue with chlorthalidone Continue with losartan (9) Non-small cell cancer of right lung:
== END 2022-06-03 13:35 | disposition home health service (06) ==
LOC: ANHED 19:08 → ANH2MED 06-01 00:14
PROVIDERS: Nurse Practitioner; Admitting Provider Internal Medicine; Emergency Provider General Practice; PCP Family Medicine; Visit Provider Family Medicine
DX: I63.9 Cerebral infarction, unspecified (principal); R41.82 Altered mental status, unspecified; R29.714 NIHSS score 14; M24.542 Contracture, left hand; F03.90 Unspecified dementia, unspecified severity, without behavioral disturbance, psychotic disturbance, mood disturbance, and anxiety; I69.351 Hemiplegia and hemiparesis following cerebral infarction affecting right dominant side; I73.9 Peripheral vascular disease, unspecified; Z99.3 Dependence on wheelchair; E78.5 Hyperlipidemia, unspecified; M47.812 Spondylosis without myelopathy or radiculopathy, cervical region; I11.9 Hypertensive heart disease without heart failure; F32.A Depression, unspecified; N40.0 Benign prostatic hyperplasia without lower urinary tract symptoms; J44.9 Chronic obstructive pulmonary disease, unspecified; I34.81 Nonrheumatic mitral (valve) annulus calcification; I34.1 Nonrheumatic mitral (valve) prolapse; R94.31 Abnormal electrocardiogram [ECG] [EKG]; Z85.118 Personal history of other malignant neoplasm of bronchus and lung; Z92.3 Personal history of irradiation; Z79.02 Long term (current) use of antithrombotics/antiplatelets; Z79.51 Long term (current) use of inhaled steroids; Z79.52 Long term (current) use of systemic steroids; Z79.899 Other long term (current) drug therapy
CPT/HCPCS: 36415; 70450; 70496; 70498; 70553; 71045; 72156; 80053; 81001; 82948; 83735; 84100; 84443; 84484; 85025; 85610; 85730; 87636; 93005; 93306; 94640; 96375; 97110; 97162; 97165; 99285; A9270; A9577; G0378; G0379; Q9967

== ENCOUNTER 2022-11-07 08:27 | Outpatient (CLI) | payer OTHER, SELFPAY ==
--- NOTE | ~2022-11-07 | CT_ITS ---
CT Scan of the Chest without Contrast: Clinical Indication: Lung cancer Technique: Contiguous sections were acquired throughout the chest without intravenous contrast. Dose reduction technique was used on this scan by utilizing automated exposure control and iterative recon struction technique. The dose-length product (DLP) was 205.92 mGy-cm. COMPARISON: 04/30/2022 Findings: There is no evidence of any significant mediastinal, hilar or axillary lymphadenopathy. Atherosclerot ic ossifications of the aorta and coronary arteries are present. There is no evidence of pleural or pericardial effusion. Stable chronic atelectasis or scarring noted in the right lung base. There is linear scarring at the left lung base. Images through the upper abdomen reveal no abnormalities. Stable severe compression fracture of L1. Impression: Stable chronic atelectasis or scarring at the right lung base. Stable compression fracture of L1. Reviewed, dictated and finalized at [facility]. Impression: Stable chronic atelectasis or scarring at the right lung base. Stable compression fracture of L1.
== END 2022-11-07 08:28 | disposition home or self-care (01) ==
PROVIDERS: PCP Family Medicine
DX: C34.31 Malignant neoplasm of lower lobe, right bronchus or lung (principal); S32.010A Wedge compression fracture of first lumbar vertebra, initial encounter for closed fracture; X58.XXXA Exposure to other specified factors, initial encounter
CPT/HCPCS: 71250

== ENCOUNTER 2023-05-05 09:18 | Outpatient (CLI) | payer OTHER, SELFPAY ==
--- NOTE | ~2023-05-05 | CT_ITS ---
CT Scan of the Chest without Contrast: Clinical Indication: Lung cancer Technique: Contiguous sections were acquired throughout the chest without intravenous contrast. Dose reduction technique was used on this scan by utilizing automated exposure control and iterative recon struction technique. The dose-length product (DLP) was 216.73 mGy-cm. COMPARISON: 11/07/2022 Findings: There is no evidence of any significant mediastinal, hilar or axillary lymphadenopathy. There are ath erosclerotic calcifications of the aorta and coronary arteries. There is no evidence of pleural or pericardial effusion. Stable chronic scarring or atelectasis, right lower lobe worse than left lower lobe. Images through the upper abdomen reveal no abnormalities. There is severe compression fracture deform ity of L1. Impression: No interval change. Stable chronic atelectasis or scarring in the lower lobes, right worse than left. Stable severe compression fracture deformity of L1. Reviewed, dictated and finalized at [facility]. [employer] Impression: No interval change. Stable chronic atelectasis or scarring in the lower lobes, right worse than left. Stable severe compression fracture deformity of L1.
== END 2023-05-05 09:19 | disposition home or self-care (01) ==
PROVIDERS: PCP Family Medicine; Visit Provider Radiology Radiation Oncology
DX: C34.31 Malignant neoplasm of lower lobe, right bronchus or lung (principal); J98.11 Atelectasis; S32.010A Wedge compression fracture of first lumbar vertebra, initial encounter for closed fracture
CPT/HCPCS: 71250

== ENCOUNTER 2023-10-18 14:46 | Emergency (ER) | payer OTHER, SELFPAY ==
--- NOTE | ~2023-10-18 | XR_ITS ---
EXAMINATION: XR chest 1V DATE: 10/18/2023 15:48 INDICATION: Weakness. TECHNIQUE: A single frontal view of the chest was obtained. COMPARISON: Chest view 05/31/2022 FINDINGS: There is mild atelectasis in the lower lung zones. No pleural effusion or pneumothorax. The heart size is normal. IMPRESSION: 1. Mild atelectasis in the lower lung zones. Reviewed, dictated and finalized at location E.
--- NOTE | ~2023-10-18 | CT_ITS ---
EXAMINATION: CT brain wo con DATE: 10/18/2023 15:38 INDICATION: Weakness and confusion. TECHNIQUE: Computed tomography (CT) of the head was performed without intravenous contrast. The mA wa s adjusted according to patient size. Iterative reconstruction technique was employed. The dose-lengt h product was 756.67 mGy-cm. COMPARISON: Head CT 05/31/2022 FINDINGS: There are old infarcts involving the bilateral frontal and parietal lobes, left occipital l obe, and posterior limb left internal capsule. There is no intracranial hemorrhage, acute infarction, or abnormal intracranial mass lesion. There is ex vacuo dilatation of the lateral ventricles. The pa ranasal sinuses are clear. There is a small right mastoid effusion. IMPRESSION: 1. Old infarcts in the brain. Reviewed, dictated and finalized at location E.
[2023-10-18 14:56] VITALS: BP 140/80; PULSE 84; RESP 17; TEMP 36.7; O2SAT 98
[2023-10-18 15:02] VITALS: PULSE 83; RESP 17; O2SAT 98
[2023-10-18 15:35] LABS: Basophils Percent Auto 0.4 % (0.2-1.2); Eosinophils Absolute Auto 0.3 K/mm3 (0-0.3); Eosinophils Percent Auto 4.7 % (0-4.4); Hematocrit 47.4 % (42.0-52.0); Hemoglobin 15.1 g/dL (14.0-18.0); Immature Granulocyte Absolute 0.01 K/mm3 (0.00-0.031); Immature Granulocyte Percent A 0.1 % (0-0.5); Lymphocytes Absolute Auto 1.83 K/mm3 (0.9-3.2); Lymphocytes Percent Auto 26.7 % (18.3-44.2); Mean Corpuscular HGB Conc 31.9 g/dl (32-36); Mean Corpuscular Hemoglobin 29.2 pg (26-34); Mean Corpuscular Volume 91.7 fl (80-100); Mean Platelet Volume 9.1 fl (7.4-10.4); Monocytes Absolute Auto 0.4 K/mm3 (0.1-0.6); Monocytes Percent Auto 6.3 % (2.6-8.5); Neutrophils Absolute Auto 4.2 K/mm3 (1.3-6.7); Neutrophils Percent Auto 61.8 % (45.5-73.1); Platelet Count Result 339 k/mm3 (150-375); Red Blood Count 5.17 M/mm3 (4.6-6.20); Red Cell Distribution Width 13.7 % (11.5-14.5); White Blood Count 6.9 K/mm3 (4.5-10.0)
[2023-10-18 15:46] LABS: Alanine Aminotransferase 17 U/L (6-50); Albumin Level 4.2 g/dL (3.5-5.1); Alkaline Phosphatase 86 U/L (38-126); Anion Gap 9 mmol/L (4-12); Aspartate Amino Transferase 32 U/L (17-59); Bilirubin,Total 0.5 mg/dL (0.2-1.3); Blood Urea Nitrogen 23 mg/dL (9-20); Calcium 9.7 mg/dL (8.4-10.2); Carbon Dioxide 27 mmol/L (22-30); Chloride 106 mmol/L (98-107); Estimated CRCL calculation 43 ml/min; Estimated Glomerular Filt Rate > 60; Glucose 206 mg/dL (65-110); Potassium 4.3 mmol/L (3.4-5.0); Prothrombin Time 13.2 Seconds (11.1-14.7); Sodium 142 mmol/L (137-145)
[2023-10-18 15:47] LABS: Partial Thromboplastin Time 29.4 Seconds (22.3-36.8)
[2023-10-18 15:54] LABS: NT Pro B Type Natriuretic Pept 399 pg/mL (19.9-100)
[2023-10-18 16:00] LABS: D Dimer 2.79 ug/mL (<0.48)
[2023-10-18 16:39] LABS: Influenza A QL RT-PCR Negative (Negative); Influenza B QL RT-PCR Negative (Negative); RSV RNA, RT-PCR Negative (Negative); SARS-CoV-2 RNA PCR Negative (Negative)
[2023-10-18 17:26] VITALS: BP 167/91; PULSE 94; RESP 19; O2SAT 100
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
[2023-10-18] MEDS: ENOXAPARIN 80 MG/0.8 ML SYRINGE 65 MG SUB-Q (18:25)
[2023-10-18 18:29] VITALS: BP 150/91; PULSE 98; RESP 20; O2SAT 99
== END 2023-10-18 19:28 | disposition home or self-care (01) ==
PROVIDERS: Emergency Provider Emergency Medicine; PCP Family Medicine
DX: R22.42 Localized swelling, mass and lump, left lower limb (principal); Z20.822 Contact with and (suspected) exposure to COVID-19; F03.90 Unspecified dementia, unspecified severity, without behavioral disturbance, psychotic disturbance, mood disturbance, and anxiety; I34.1 Nonrheumatic mitral (valve) prolapse; I73.9 Peripheral vascular disease, unspecified; I10 Essential (primary) hypertension; I69.951 Hemiplegia and hemiparesis following unspecified cerebrovascular disease affecting right dominant side; M62.441 Contracture of muscle, right hand; J44.9 Chronic obstructive pulmonary disease, unspecified; E78.5 Hyperlipidemia, unspecified; N40.0 Benign prostatic hyperplasia without lower urinary tract symptoms; Z85.118 Personal history of other malignant neoplasm of bronchus and lung; Z87.891 Personal history of nicotine dependence; Z79.82 Long term (current) use of aspirin
CPT/HCPCS: 36415; 70450; 71045; 80053; 83880; 85025; 85380; 85610; 85730; 87637; 96372; 99284; J1650

== ENCOUNTER 2023-10-19 07:04 | Outpatient (CLI) | payer OTHER, SELFPAY ==
--- NOTE | ~2023-10-19 | US_ITS ---
Duplex Sonography of the bilateral lower extremities: Indication: Soft tissue disorder Sagittal and transverse B-mode images as well as color-flow imaging were performed on the right and l eft femoral and popliteal veins. B-mode examination was done without and with compression in the tra nsverse plane. There is good visualization of the bilateral common femoral, proximal profunda femora l, superficial femoral, greater saphenous, and popliteal veins. Normal flow was seen on color-flow im aging. Normal compressibility was demonstrated. There is noncompressibility lacunar saphenous vein, consistent with thrombus. Remaining visualized ca lf veins otherwise are also patent bilaterally. Impression: Thrombosis in the left greater saphenous vein. No other venous thrombosis seen in either lower extremity. Reviewed, dictated and finalized at location . Impression: Thrombosis in the left greater saphenous vein. No other venous thrombosis seen in either lower extremity.
== END 2023-10-19 07:05 | disposition home or self-care (01) ==
PROVIDERS: PCP Family Medicine; Visit Provider Emergency Medicine
DX: M79.89 Other specified soft tissue disorders (principal); I82.812 Embolism and thrombosis of superficial veins of left lower extremity
CPT/HCPCS: 93970

== ENCOUNTER 2023-10-19 08:41 | Observation (INO) | payer OTHER, SELFPAY ==
[2023-10-19] VITALS (10 sets, daily range): BP systolic 160–181; BP diastolic 78–93; PULSE 64–80; RESP 14–19; TEMP 36.7–37.3; O2SAT 99–100; BMI 22.3
--- NOTE | ~2023-10-19 | CT_ITS ---
EXAMINATION: CTA chest PE protocol DATE: 10/19/2023 11:27 CDT INDICATION: Left lower extremity deep venous thrombosis. Chronic TECHNIQUE: Computed tomographic angiography (CTA) of the chest was performed with 100 mL Omnipaque-35 0 intravenous contrast. The dose-length product was 281.02 mGy-cm. Maximum intensity projection 3D-re constructions of the aorta and other arteries were constructed by the technologist on a separate work station. COMPARISON: CT dated 05/05/2023. FINDINGS: Study is technically adequate. There is filling defect in right upper lobe segmental pulmon ori artery, consistent with pulmonary embolism, small thrombus burden. Heart size normal. No signific ant pleural or pericardial effusion. There is bandlike consolidation in the right lower lobe measurin g 2 x 6.8 x 1.5 cm. This may represent site of known malignancy. There is left lower lobe atelectasis /scarring. No endobronchial lesions. No thoracic lymphadenopathy. There is extensive atherosclerosis of the aorta. There is a L1 burst fracture, unchanged. IMPRESSION: 1: Filling defect right upper lobe segmental pulmonary artery consistent with pulmonary embolism, sm all thrombus burden. 2 Stable bandlike consolidation in the lower lobes, right greater than left, most likely atelectasis/ scarring or residua of known malignancy. 3: Stable chronic L1 burst fracture. Reviewed, dictated and finalized at location B. IMPRESSION: 1: Filling defect right upper lobe segmental pulmonary artery consistent with pulmonary embolism, small thrombus burden. 2 Stable bandlike consolidation in the lower lobes, right greater than left, mo st likely atelectasis/scarring or residua of known malignancy. 3: Stable chronic L1 burst fracture.
--- NOTE | 2023-10-19 09:57 | ED.RECABL ---
HPI - Recheck/Abnormal Lab/Rx General Chief Complaint: Recheck/Abnormal Lab/Rx <Jazmín Doty PA-C - Last Filed: 10/19/23 15:37> Stated Complaint: positive US for DVT <SY Lange Last Filed: 10/19/23 15:37> Time Seen by Provider: 10/19/23 08:58 <SY Lange Last Filed: 10/19/23 15:37> Source: patient, family and old records reviewed <SY Lange Last Filed: 10/19/23 15:37> Mode of arrival: ambulatory <SY Lange Last Filed: 10/19/23 15:37> Limitations: no limitations and clinical condition <SY Lange Last Filed: 10/19/23 15:37> History of Present Illness HPI narrative: Patient is a 72-year-old male who presents the ED with his shoulder was report of positive outpatient DVT study. Patient was seen in the ED last night for increased swelling in his left lower extremity compared to the right. Family member/dumpster operator at bedside reports the swelling has been present for the last 3 days. He was seen in the ED last night for sx's, reassuring w/u, sent for an outpatient venous Doppler ultrasound this morning, which was positive for a left-sided saphenous vein thrombosis. No DVT in right lower extremity. Patient has history of right-sided lung cancer status post radiation treatment, CVA, contractures of right upper extremity, chronic weakness/immobilization. Is able to assist somewhat transfers, but otherwise bedbound. Does complain of pain throughout his lower extremities bilaterally with transfer/standing. He denies any shortness of breath or difficulty breathing. Denies chest pain. <SY Lange Last Filed: 10/19/23 15:37> Related Data Home Medications: Home Medications Medication Instructions Recorded Confirmed amlodipine 5 mg tablet 10 mg PO DAILY 12/15/19 10/19/23 cetirizine 10 mg capsule 10 mg PO DAILY 12/15/19 10/19/23 clopidogrel 75 mg tablet 75 mg PO DAILY 12/15/19 10/19/23 losartan 100 mg tablet 100 mg PO DAILY 12/15/19 10/19/23 acetaminophen 650 mg 650 mg PO Q8H PRN Pain 05/31/22 10/19/23 tablet,extended release albuterol sulfate 90 mcg/actuation 2 puff inhalation Q4H 05/31/22 10/19/23 aerosol inhaler aspirin 81 mg tablet,delayed 81 mg PO DAILY 05/31/22 10/19/23 release cyclobenzaprine 10 mg tablet 10 mg PO BID PRN Spasms 05/31/22 10/19/23 docusate sodium 50 mg capsule 50 mg PO BID 05/31/22 10/19/23 doxazosin 1 mg tablet 2 mg PO HS 05/31/22 10/19/23 famotidine 20 mg tablet 20 mg PO BID 05/31/22 10/19/23 hydralazine 50 mg tablet 50 mg PO BID 05/31/22 10/19/23 metoprolol succinate 25 mg 25 mg PO DAILY 05/31/22 10/19/23 tablet,extended release 24 hr (Toprol XL) propylene glycol 0.6 % eye drops 1 drp EACH EYE BID PRN Dry Eyes 05/31/22 10/19/23 (Systane Complete) <Jazmín Doty PA-C - Last Filed: 10/19/23 15:37> Allergies/Adverse Reactions: Allergies Allergy/AdvReac Type Severity Reaction Status Date / Time No Known Allergies Allergy Verified 10/19/23 15:02 <Jazmín Doty PA-C - Last Filed: 10/19/23 15:37> Review of Systems Review of Systems: CONSTITUTIONAL: Denies fever, chills, or sweats. CARDIOVASCULAR: See HPI RESPIRATORY: Denies cough or dyspnea. GASTROINTESTINAL: Denies abdominal pain, nausea, vomiting. MUSCULOSKELETAL: See HPI NEUROLOGIC: Denies headache, dizziness, numbness, or weakness. <SY Lange Last Filed: 10/19/23 15:37> All systems reviewed & are unremarkable except as noted in HPI and below <SY Lange Last Filed: 10/19/23 15:37> [facility] Past Medical History Medical History: Medical History Benign prostatic hyperplasia Cerebrovascular accident Residual right-sided weakness. Chronic kidney disease Chronic obstructive pulmonary disease Dementia Depression Hyperlipidemia Hypertension Mitral valve
--- NOTE | 2023-10-19 11:48 | ECG_ITS ---
SEE SCANNED COPY FOR CONFIRMED REPORT. MTDD
[2023-10-19] MEDS: HEPARIN SODIUM 5,000 UNITS/ML VIAL 5000 UNITS IV PUSH (12:07)
[2023-10-19] MEDS: HEPARIN SOD/D5W 100 UNITS/ML 25,000 UNITS/250 ML BAG 11 UNITS IV CONT (12:07)
[2023-10-19 12:08] LABS: Basophils Absolute Auto 0.1 K/mm3 (0.0-0.1); Basophils Percent Auto 0.7 % (0.2-1.2); Eosinophils Absolute Auto 0.3 K/mm3 (0-0.3); Eosinophils Percent Auto 4.1 % (0-4.4); Hematocrit 48.5 % (42.0-52.0); Hemoglobin 15.5 g/dL (14.0-18.0); Immature Granulocyte Absolute 0.02 K/mm3 (0.00-0.031); Immature Granulocyte Percent A 0.3 % (0-0.5); Lymphocytes Percent Auto 23.8 % (18.3-44.2); Mean Corpuscular Hemoglobin 29.1 pg (26-34); Mean Corpuscular Volume 91.2 fl (80-100); Mean Platelet Volume 9.7 fl (7.4-10.4); Monocytes Absolute Auto 0.6 K/mm3 (0.1-0.6); Monocytes Percent Auto 8.2 % (2.6-8.5); Neutrophils Absolute Auto 4.8 K/mm3 (1.3-6.7); Neutrophils Percent Auto 62.9 % (45.5-73.1); Platelet Count Result 348 k/mm3 (150-375); Red Blood Count 5.32 M/mm3 (4.6-6.20); Red Cell Distribution Width 13.9 % (11.5-14.5); White Blood Count 7.6 K/mm3 (4.5-10.0)
[2023-10-19 12:21] LABS: Prothrombin Time 13.7 Seconds (11.1-14.7)
[2023-10-19 12:22] LABS: Alanine Aminotransferase 17 U/L (6-50); Albumin Level 4.6 g/dL (3.5-5.1); Alkaline Phosphatase 99 U/L (38-126); Anion Gap 9 mmol/L (4-12); Aspartate Amino Transferase 31 U/L (17-59); Bilirubin,Total 0.6 mg/dL (0.2-1.3); Blood Urea Nitrogen 23 mg/dL (9-20); Calcium 9.8 mg/dL (8.4-10.2); Carbon Dioxide 28 mmol/L (22-30); Chloride 103 mmol/L (98-107); Estimated Glomerular Filt Rate > 60; Glucose 79 mg/dL (65-110); Partial Thromboplastin Time 34.1 Seconds (22.3-36.8); Potassium 4.2 mmol/L (3.4-5.0); Sodium 140 mmol/L (137-145)
[2023-10-19 12:30] LABS: NT Pro B Type Natriuretic Pept 494 pg/mL (19.9-100); Troponin I 0.012 ng/mL (0.000-0.034)
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
--- NOTE | 2023-10-19 14:15 | ADMGEN ---
This patient, Connie Molina, was admitted to Medical Room 251-01. Patient/family oriented to hospital policies and general routines including ID bracelet, bed and alarms, visiting hours, pain management, procedures, bathroom and other care routines, personal items, smoking policy, room service/diet, and visiting hours. Information on how to activate the Rapid Response Team has been discussed. Patient/Family are encouraged to report perceived risks to care and to ask questions if they do not understand what they are told or what they should do.
[2023-10-19 18:55] LABS: INR 1.1; Prothrombin Time 14.5 Seconds (11.1-14.7)
[2023-10-19 20:31] LABS: Partial Thromboplastin Time > 200.0 Seconds (22.3-36.8)
[2023-10-20] VITALS (9 sets, daily range): BP systolic 135–159; BP diastolic 64–92; PULSE 69–79; RESP 16–21; TEMP 36.6–36.7; O2SAT 98–100
[2023-10-20 03:45] LABS: Basophils Absolute Auto 0.1 K/mm3 (0.0-0.1); Basophils Percent Auto 0.7 % (0.2-1.2); Eosinophils Absolute Auto 0.5 K/mm3 (0-0.3); Eosinophils Percent Auto 4.2 % (0-4.4); Hematocrit 45.6 % (42.0-52.0); Hemoglobin 14.6 g/dL (14.0-18.0); Immature Granulocyte Absolute 0.03 K/mm3 (0.00-0.031); Immature Granulocyte Percent A 0.3 % (0-0.5); Lymphocytes Absolute Auto 4.28 K/mm3 (0.9-3.2); Lymphocytes Percent Auto 40.4 % (18.3-44.2); Mean Corpuscular Hemoglobin 29.4 pg (26-34); Mean Corpuscular Volume 91.9 fl (80-100); Mean Platelet Volume 9.2 fl (7.4-10.4); Monocytes Absolute Auto 0.9 K/mm3 (0.1-0.6); Monocytes Percent Auto 8.5 % (2.6-8.5); Neutrophils Absolute Auto 4.9 K/mm3 (1.3-6.7); Neutrophils Percent Auto 45.9 % (45.5-73.1); Platelet Count Result 316 k/mm3 (150-375); Red Blood Count 4.96 M/mm3 (4.6-6.20); Red Cell Distribution Width 13.6 % (11.5-14.5); White Blood Count 10.6 K/mm3 (4.5-10.0)
[2023-10-20 03:58] LABS: Anion Gap 8 mmol/L (4-12); Blood Urea Nitrogen 22 mg/dL (9-20); Calcium 9.5 mg/dL (8.4-10.2); Carbon Dioxide 23 mmol/L (22-30); Chloride 105 mmol/L (98-107); Estimated CRCL calculation 40 ml/min; Estimated Glomerular Filt Rate > 60; Glucose 107 mg/dL (65-110); Magnesium 2.2 mg/dL (1.6-2.3); Potassium 4.5 mmol/L (3.4-5.0); Sodium 136 mmol/L (137-145)
[2023-10-20] MEDS: APIXABAN 5 MG TABLET 10 MG PO (08:53)
[2023-10-20] MEDS: METOPROLOL SUCCINATE EXT REL 25 MG TABCR PO (08:54)
[2023-10-20] MEDS: ATORVASTATIN 40 MG TABLET 80 MG PO (08:55)
[2023-10-20] MEDS: CLOPIDOGREL BISULFATE 75 MG TABLET PO (08:55)
[2023-10-20] MEDS: LOSARTAN POTASSIUM 100 MG TABLET PO (08:55)
[2023-10-20] MEDS: amLODIPine BESYLATE 5 MG TABLET 10 MG PO (08:55)
[2023-10-20] MEDS: FAMOTIDINE 20 MG TABLET PO ×2 (08:55→16:35)
[2023-10-20] MEDS: DOCUSATE SODIUM 100 MG CAPSULE PO ×2 (08:55→17:39)
[2023-10-20] MEDS: LORATADINE 10 MG TABLET PO (08:56)
[2023-10-20] MEDS: hydrALAZINE HCL 50 MG TABLET PO ×2 (08:56→16:35)
--- NOTE | 2023-10-20 13:08 | PM.DS ---
DS: Admitting Diagnosis Discharge Date 10/20/2023 Admitting Diagnosis DVT/Pulmonary Embolism DS: Discharge Diagnosis Discharge Diagnosis (1) Pulmonary embolism: Qualifiers: Acute cor pulmonale presence: without acute cor pulmonale Chronicity: acute Pulmonary embolism type: unspecified Qualified Code(s): I26.99 - Other pulmonary embolism without acute cor pulmonale Code(s): I26.99 - Other pulmonary embolism without acute cor pulmonale Status: Acute (2) Thrombosis of left saphenous vein: Code(s): I82.812 - Embolism and thrombosis of superficial veins of left lower extremity Status: Acute (3) Hypertension: Code(s): I10 - Essential (primary) hypertension Status: Acute (4) Hyperlipidemia: Code(s): E78.5 - Hyperlipidemia, unspecified Status: Acute (5) History of stroke: Code(s): Z86.73 - Personal history of transient ischemic attack (TIA), and cerebral infarction without residual deficits Status: Acute (6) Dementia: Code(s): F03.90 - Unspecified dementia, unspecified severity, without behavioral disturbance, psychotic disturbance, mood disturbance, and anxiety Status: Acute DS: Summary Hospital Course Reason for hospitalization: Pulmonary Embolism/DVT Hospital Course: Admission: Medical Record Chief Complaint: DVT on outpatient ultrasound. Narrative: This is a pleasant 72-year-old male with history of stroke, dementia, peripheral vascular disease, hypertension, hyperlipidemia, and chronic obstructive pulmonary disease, who presented to the emergency department after he was reportedly found to have a DVT on outpatient ultrasound done this morning. At the time my evaluation the patient is eating and is in good spirits. He is unable to provide significant history and his friend and long-time caregiver Peg provides the majority of the following history. The patient has lived with her since 2006. The last couple of years he has declined physically and is not able to do much anymore aside from stand and pivot to transfer. Peg noticed a few days ago that his left leg started to swell and she brought him to the ED yesterday for evaluation of the same. He received a therapeutic dose of enoxaparin was scheduled for lower extremity venous Doppler ultrasounds this morning which showed a thrombosis in the left greater saphenous vein. Chest CTA done in the ED showed a pulmonary embolism in the right upper lobe with small clot burden for which he was started on a heparin drip. He is being admitted in this setting for further treatment. The patient has no complaints but again is not really able to provide much history. 10/19: Patient was seen and assessed following day in no acute distress remained on RA 100% with no complaints, smiling and says he already feels better. Transitioned patient to Eliquis PO for DVT and PE coverage. Patient with HX CVA mostly bed ridden will need group home AC Caregiver made aware. Patient discharged to home with home health and caregiver Status at Discharge Overall status at discharge: patient is back to baseline Time Spent with Patient Time attestation: Total time spent providing and/or coordinating discharge services: Time spent: Less than 30 minutes Exam Narrative: General: Well-developed gentleman in the semi-Diaz position in bed in no acute distress. Weight: 64.6 kg. HEENT: Normocephalic, atraumatic. PERRL, EOMI. Sclera anicteric. Oral mucosa moist. Oropharynx clear. Edentulous. Neck: Supple. No JVD. Respiratory: Respirations are nonlabored and lungs are clear to auscultation bilaterally. Cardiovascular: Regular rate and rhythm with S1-S2. Gastrointestinal: Abdomen is soft, nontender, and nondistended with positive bowel sounds. Skin: Warm and dry. Extremities: No cyanosis or clubbing. Mild edema of the left lower leg. Radial pulses palpable. Pedal pulses heard with the Doppler. Neurological: Alert. C
--- NOTE | 2023-10-20 15:02 | PCCCNOTE ---
On 10/20/23, the student, Mago Araya, provided care and completed [facility] documentation on this patient. I have reviewed the student's documentation and agree with the findings.
== END 2023-10-20 18:15 | disposition home health service (06) ==
LOC: ANHED 12:08 → ANH2MED 15:37
PROVIDERS: Physician Assistant; Admitting Provider Family Medicine; Emergency Provider Physician Assistant; PCP Family Medicine; Visit Provider Internal Medicine
DX: I26.99 Other pulmonary embolism without acute cor pulmonale (principal); I82.812 Embolism and thrombosis of superficial veins of left lower extremity; I69.351 Hemiplegia and hemiparesis following cerebral infarction affecting right dominant side; J44.9 Chronic obstructive pulmonary disease, unspecified; I12.9 Hypertensive chronic kidney disease with stage 1 through stage 4 chronic kidney disease, or unspecified chronic kidney disease; N18.9 Chronic kidney disease, unspecified; I73.9 Peripheral vascular disease, unspecified; N40.0 Benign prostatic hyperplasia without lower urinary tract symptoms; F03.90 Unspecified dementia, unspecified severity, without behavioral disturbance, psychotic disturbance, mood disturbance, and anxiety; F32.A Depression, unspecified; I34.1 Nonrheumatic mitral (valve) prolapse; Z85.118 Personal history of other malignant neoplasm of bronchus and lung; Z92.3 Personal history of irradiation; Z79.02 Long term (current) use of antithrombotics/antiplatelets; Z79.51 Long term (current) use of inhaled steroids; Z79.82 Long term (current) use of aspirin; Z87.891 Personal history of nicotine dependence
CPT/HCPCS: 36415; 71275; 80048; 80053; 83735; 83880; 84484; 85025; 85610; 85730; 93005; 93970; 96365; 96366; 99285; A9270; G0378; G0379; J1644; Q9967

== ENCOUNTER 2024-05-13 09:35 | Outpatient (CLI) | payer OTHER, SELFPAY ==
--- NOTE | ~2024-05-13 | CT_ITS ---
EXAMINATION:CT diagnostic chest wo con DATE: 05/13/2024 10:06 INDICATION: Malignant neoplasm of right lung lower lobe. TECHNIQUE: Computed tomography (CT) of the chest was performed without intravenous contrast. Automate d exposure control and iterative reconstruction technique were employed. The dose-length product (DLP ) was 164.61 mGy-cm. COMPARISON: Chest CT 10/19/2023, 04/30/22, PET CT 12/21/2018 FINDINGS: There is mild emphysema. There is mild atelectasis in the inferior lungs. There is a 5.4 x 2.0 cm mass in right lung lower lobe with volume loss. No pleural effusion. The heart size is normal. There are coronary artery calcifications. No pericardial effusion. There are cysts in the kidneys me asuring up to 5.5 cm on the right. There are masses in the kidneys measuring soft tissue attenuation measuring up to 2.6 cm on the left. There is an arterial bypass graft in left chest wall. Chronic col lapse of the graft in the chest suggests it may be excluded. There is mild thoracic spondylosis. Ther e is a chronic burst fracture of L1. There is mild chronic anterior wedging of multiple thoracic vert ebral bodies. IMPRESSION: 1. Mass in right lung lower lobe, stable from 04/30/22, consistent with primary bronchogenic carcinoma and treatment change. 2. Mild emphysema. 3. Kidney masses measuring up to 2.6 cm on the left, which may be hemorrhagic cysts or less likely re nal cell carcinoma. Abdomen CT or MRI without and with contrast is recommended. Reviewed, dictated and finalized at location A. BAG FINISHER IMPRESSION: 1. Mass in right lung lower lobe, stable from 04/30/22, consistent with primary bronchogenic carcinoma and treatment change. 2. Mild emphysema. 3. Kidney masses measuring up to 2.6 cm on the left, which may be hemorrhagic c ysts or less likely renal cell carcinoma. Abdomen CT or MRI without and with co ntrast is recommended.
== END 2024-05-13 09:36 | disposition home or self-care (01) ==
PROVIDERS: PCP Family Medicine; Visit Provider Radiology Radiation Oncology
DX: C34.31 Malignant neoplasm of lower lobe, right bronchus or lung (principal); J43.9 Emphysema, unspecified; N28.89 Other specified disorders of kidney and ureter
CPT/HCPCS: 71250